=== PATIENT | male | born 1930 | race Caucasian/White ===

== ENCOUNTER 2016-07-04 12:10 | Emergency (ER) | payer MEDICARE, OTHER ==
[2008-08-16 11:01] VITALS: BP 172/91
[~2016-07-04] VITALS: Ht 180.3 cm; Wt 95.5 kg
[~2016-07-04 12:10] MED LIST: AMARYL 2MG T2 MG/TAB PO; ASPIR-LOW81 MG PO; ASPIRIN E.C. 8181 MG PO; BETAPACE 80MG80 MG PO; BETAPACE AF120 MG PO; CORGARD 40M40 MG/TAB PO; DIOVAN; FLOMAX 0.40.4 MG/CAP PO; LASIX 40MG TABL40 MG PO; LORTAB 5/500 501 TAB PO; MIRALAX PA17 GM/Dose PO; NAPROXEN220 MG PO; NORVASC 10MG10 MG PO; PRILOSEC 20MG20 MG PO; PRILOSEC20 M1 PO; TOPAMAX50 MG PO; TOPROL PO; TOPROL XL50 MG PO; TYLENOL 325MG325 MG PO; ZOCOR 20MG20 MG PO; ZOFRAN 4MG T4 MG/TAB PO
[2016-07-04 12:14] VITALS: TEMP 97.5
[2016-07-04] MEDS ORDERED: ZEBETA10 MG PO (12:21)
[2016-07-04 13:14] LABS: BASO % 0.4 % (0.0-2.0); EOS # 0.2 (0.0-0.7); EOS % 2.9 % (0-4.0); GRAN # 4.3 (1.4-6.5); GRAN % 63.2 % (42.2-75.2); HEMATOCRIT 44.8 % (42.0-52.0); HEMOGLOBIN 15.2 g/dl (13.5-18.0); LYMPH # 1.5 (1.2-3.4); MEAN CELL VOLUME 88 fl (80.0-100.0); MEAN CORPUSCULAR HEMOGLOBIN 30 pg (27.0-31.0); MEAN CORPUSCULAR HGB CONC 34 g/dl (33.0-37.0); MEAN PLATELET VOLUME 12.1 fl (7.4-10.4); MONO # 0.8 (0.1-0.6); MONO % 11.1 % (1.7-9.3); PLATELET COUNT 166 K/mm3 (130-400); RED BLOOD COUNT 5.09 M/mm3 (4.20-5.60); REDCELL DISTRIBUTION WIDTH-CV 12.9 % (11.5-14.5); WHITE BLOOD COUNT 6.8 K/mm3 (4.8-10.8)
[2016-07-04 13:23] LABS: PH 6 (5-8); SQUAMOUS EPITHELIAL None Seen /hpf; URINE APPEARANCE Clear; URINE BACTERIA None Seen /hpf; URINE BILIRUBIN Negative (NEGATIVE); URINE BLOOD Negative (NEGATIVE); URINE COLOR Yellow; URINE GLUCOSE Negative (NEGATIVE); URINE KETONE Negative (NEGATIVE); URINE RBC 0-2 /hpf; URINE UROBILINOGEN Negative (NEGATIVE); URINE WBC 0-2 /hpf
[2016-07-04 13:37] LABS: ADJUSTED CALCIUM 9.3 mg/dL (8.4-10.2); ALANINE AMINOTRANSFERASE 52 U/L (21-72); ALBUMIN 4.2 gm/dL (3.5-5.0); ALKALINE PHOSPHATASE 61 U/L (50-136); ANION GAP 12 mmol/L (7-16); BILIRUBIN,TOTAL 1.2 mg/dL (0.0-1.0); BLOOD UREA NITROGEN 18 mg/dL (9-20); CALCIUM 9.5 mg/dL (8.4-10.2); CARBON DIOXIDE 25 mmol/L (22-30); CHLORIDE 101 mmol/L (98-107); CREATININE, serum 0.88 mg/dL (0.66-1.25); GLUCOSE 129 mg/dL (74-106); SODIUM 138 mmol/L (137-145); TOTAL PROTEIN 7.4 gm/dL (6.4-8.2)
[2016-07-04 13:46] LABS: B-TYPE NATRIURETIC PEPTIDE 2630 pg/mL (0-450)
[2016-07-04 13:48] LABS: C-REACTIVE PROTEIN < 0.5 mg/dL (0.0-0.9); TROPONIN-I < 0.012 ng/mL (0.000-0.034)
[2016-07-04] MEDS ORDERED: LASIX 40MG TABL40 MG PO (14:34)
[2016-07-04] MEDS ORDERED: NITROSTAT0.4 MG/TAB SL (14:35)
[2016-07-04 16:04] VITALS: BP 132/81; PULSE 67
== END 2016-07-04 16:05 | disposition home or self-care (01) ==
LOC: COL.ER 12:10
PROVIDERS: Family Medicine
DX: R07.9 Chest pain, unspecified (principal); R06.01 Orthopnea

== ENCOUNTER 2017-01-05 22:10 | Emergency (ER) | payer MEDICARE, OTHER ==
[2008-08-16 11:01] VITALS: BP 172/91
[~2017-01-05] VITALS: Ht 180.3 cm; Wt 86.8 kg
[~2017-01-05 22:10] MED LIST changes: +NITROSTAT0.4 MG/TAB SL; +ZEBETA10 MG PO
[2017-01-05 22:16] VITALS: TEMP 98
[2017-01-05 22:53] LABS: BASO % 0.4 % (0.0-2.0); EOS # 0.1 (0.0-0.7); EOS % 1.4 % (0-4.0); GRAN # 5.2 (1.4-6.5); GRAN % 64.4 % (42.2-75.2); HEMATOCRIT 46.7 % (42.0-52.0); HEMOGLOBIN 15.5 g/dl (13.5-18.0); LYMPH % 24.3 % (20.0-51.0); MEAN CELL VOLUME 90 fl (80.0-100.0); MEAN CORPUSCULAR HEMOGLOBIN 30 pg (27.0-31.0); MEAN CORPUSCULAR HGB CONC 33 g/dl (33.0-37.0); MEAN PLATELET VOLUME 11.6 fl (7.4-10.4); MONO # 0.8 (0.1-0.6); MONO % 9.3 % (1.7-9.3); PLATELET COUNT 183 K/mm3 (130-400); WHITE BLOOD COUNT 8.1 K/mm3 (4.8-10.8)
[2017-01-05 23:01] LABS: PH 7 (5-8); SQUAMOUS EPITHELIAL None Seen /hpf; URINE APPEARANCE Clear; URINE BACTERIA None Seen /hpf; URINE BILIRUBIN Negative (NEGATIVE); URINE BLOOD Negative (NEGATIVE); URINE COLOR Straw; URINE GLUCOSE Negative (NEGATIVE); URINE KETONE Negative (NEGATIVE); URINE RBC 0-2 /hpf; URINE UROBILINOGEN Negative (NEGATIVE); URINE WBC 0-2 /hpf
[2017-01-05 23:03] LABS: ADJUSTED CALCIUM 9.4 mg/dL (8.4-10.2); ALBUMIN 4.1 gm/dL (3.5-5.0); BILIRUBIN,TOTAL 1.1 mg/dL (0.0-1.0); CALCIUM 9.5 mg/dL (8.4-10.2); CREATININE, serum 0.98 mg/dL (0.66-1.25); POTASSIUM 4.2 mmol/L (3.4-5.0); TOTAL PROTEIN 7.1 gm/dL (6.4-8.2)
[2017-01-06 00:28] VITALS: BP 133/83; PULSE 60
== END 2017-01-06 00:45 | disposition home or self-care (01) ==
LOC: COL.ER 22:10
PROVIDERS: Nurse Practitioner
DX: K59.00 Constipation, unspecified (principal); I48.91 Unspecified atrial fibrillation; E11.9 Type 2 diabetes mellitus without complications; Z79.84 Long term (current) use of oral hypoglycemic drugs; I10 Essential (primary) hypertension; Z95.0 Presence of cardiac pacemaker; Z87.891 Personal history of nicotine dependence
CPT/HCPCS: Q9967

== ENCOUNTER 2017-01-10 00:05 | Emergency (ER) | payer MEDICARE, OTHER ==
[2008-08-16 11:01] VITALS: BP 172/91
[~2017-01-10] VITALS: Ht 180.3 cm; Wt 86.4 kg
[2017-01-10 00:13] VITALS: BP 160/77; TEMP 98.4
[2017-01-10 01:39] VITALS: PULSE 86
== END 2017-01-10 01:13 | disposition home or self-care (01) ==
LOC: COL.ER 00:05
DX: S39.012A Strain of muscle, fascia and tendon of lower back, initial encounter (principal); E11.9 Type 2 diabetes mellitus without complications; I10 Essential (primary) hypertension; N40.0 Benign prostatic hyperplasia without lower urinary tract symptoms; Z71.1 Person with feared health complaint in whom no diagnosis is made; Z87.19 Personal history of other diseases of the digestive system

== ENCOUNTER 2017-01-12 12:51 | Emergency (ER) | payer MEDICARE, OTHER ==
[2008-08-16 11:01] VITALS: BP 172/91
[~2017-01-12] VITALS: Ht 180.3 cm; Wt 86.4 kg
[2017-01-12 12:56] VITALS: BP 168/77; PULSE 68; TEMP 97.8
== END 2017-01-12 14:08 | disposition left against medical advice (07) ==
LOC: COL.ER 12:51
DX: K59.00 Constipation, unspecified (principal)

== ENCOUNTER 2017-04-25 22:19 | Emergency (ER) | payer MEDICARE, OTHER ==
[2008-08-16 11:01] VITALS: BP 172/91
[~2017-04-25] VITALS: Ht 180.3 cm; Wt 81.8 kg
[2017-04-25 22:22] VITALS: BP 162/87; TEMP 97
[2017-04-25] MEDS ORDERED: PACERONE200 MG PO (22:37)
[2017-04-25] MEDS ORDERED: ELIQUIS 5MG PO (22:38)
[2017-04-25] MEDS ORDERED: ZEBETA10 MG PO (22:39)
[2017-04-25] MEDS ORDERED: COLACE 100100 MG/CAP PO (22:40)
[2017-04-25] MEDS ORDERED: LEADER CLEARLAX PO (22:41)
[2017-04-25 22:59] LABS: COLLECTION METHOD CLEAN CATCH
[2017-04-25 23:04] LABS: MUCOUS Present /lpf; PH 7 (5-8); SQUAMOUS EPITHELIAL None Seen /hpf; URINE APPEARANCE Clear; URINE BACTERIA None Seen /hpf; URINE BILIRUBIN Negative (NEGATIVE); URINE BLOOD 2+ (NEGATIVE); URINE COLOR Straw; URINE GLUCOSE Negative (NEGATIVE); URINE KETONE Negative (NEGATIVE); URINE LEUKOCYTE ESTERASE Negative (NEGATIVE); URINE PROTEIN(semi-quant) Negative (NEGATIVE); URINE UROBILINOGEN Negative (NEGATIVE); URINE WBC 0-2 /hpf
[2017-04-25 23:16] LABS: BASO % 0.3 % (0.0-2.0); EOS # 0.2 (0.0-0.7); EOS % 2.2 % (0-4.0); GRAN % 67.1 % (42.2-75.2); HEMATOCRIT 45.5 % (42.0-52.0); HEMOGLOBIN 15.2 g/dl (13.5-18.0); LYMPH # 1.5 (1.2-3.4); LYMPH % 20.8 % (20.0-51.0); MEAN CELL VOLUME 92 fl (80.0-100.0); MEAN CORPUSCULAR HEMOGLOBIN 31 pg (27.0-31.0); MEAN CORPUSCULAR HGB CONC 33 g/dl (33.0-37.0); MEAN PLATELET VOLUME 11.3 fl (7.4-10.4); MONO # 0.7 (0.1-0.6); MONO % 9.1 % (1.7-9.3); PLATELET COUNT 178 K/mm3 (130-400); RED BLOOD COUNT 4.96 M/mm3 (4.20-5.60); WHITE BLOOD COUNT 7.4 K/mm3 (4.8-10.8)
[2017-04-25 23:30] LABS: ADJUSTED CALCIUM 9.6 mg/dL (8.4-10.2); ALANINE AMINOTRANSFERASE 40 U/L (21-72); ALKALINE PHOSPHATASE 65 U/L (50-136); ANION GAP 9 mmol/L (7-16); BILIRUBIN,TOTAL 0.8 mg/dL (0.0-1.0); BLOOD UREA NITROGEN 17 mg/dL (9-20); C-REACTIVE PROTEIN < 0.5 mg/dL (0.0-0.9); CALCIUM 9.6 mg/dL (8.4-10.2); CARBON DIOXIDE 30 mmol/L (22-30); CHLORIDE 100 mmol/L (98-107); CREATININE, serum 1.02 mg/dL (0.66-1.25); GLUCOSE 96 mg/dL (74-106); POTASSIUM 5.1 mmol/L (3.4-5.0); SODIUM 138 mmol/L (137-145); TOTAL PROTEIN 7.1 gm/dL (6.4-8.2)
[2017-04-26] MEDS ORDERED: KRISTALOSE10 GM/PACK PO (00:16)
[2017-04-26 00:45] VITALS: PULSE 68
== END 2017-04-26 00:45 | disposition home or self-care (01) ==
LOC: COL.ER 22:19
PROVIDERS: Emergency Medicine
DX: K59.00 Constipation, unspecified (principal); E11.9 Type 2 diabetes mellitus without complications; I10 Essential (primary) hypertension; Z95.0 Presence of cardiac pacemaker

== ENCOUNTER 2017-05-12 11:04 | Emergency (ER) | payer MEDICARE, OTHER ==
[2008-08-16 11:01] VITALS: BP 172/91
[~2017-05-12] VITALS: Ht 177.8 cm; Wt 81.8 kg
[~2017-05-12 11:04] MED LIST changes: +COLACE 100100 MG/CAP PO; +ELIQUIS 5MG PO; +KRISTALOSE10 GM/PACK PO; +LEADER CLEARLAX PO; +PACERONE200 MG PO
[2017-05-12 11:10] VITALS: BP 144/65; TEMP 96.8
[2017-05-12 12:41] VITALS: PULSE 78
== END 2017-05-12 12:42 | disposition home or self-care (01) ==
LOC: COL.ER 11:04
DX: K59.00 Constipation, unspecified (principal); I10 Essential (primary) hypertension; E11.9 Type 2 diabetes mellitus without complications; Z90.49 Acquired absence of other specified parts of digestive tract; Z98.890 Other specified postprocedural states

== ENCOUNTER 2017-05-17 23:54 | Emergency (ER) | payer MEDICARE, OTHER ==
[2008-08-16 11:01] VITALS: BP 172/91
[~2017-05-17] VITALS: Ht 154.9 cm; Wt 81.8 kg
[2017-05-18 00:04] VITALS: TEMP 97.9
[2017-05-18 02:00] VITALS: BP 128/72; PULSE 65
== END 2017-05-18 01:59 | disposition home or self-care (01) ==
LOC: COL.ER 23:54
DX: K59.00 Constipation, unspecified (principal); I10 Essential (primary) hypertension; E11.9 Type 2 diabetes mellitus without complications; Z95.0 Presence of cardiac pacemaker

== ENCOUNTER 2017-07-29 17:07 | Emergency (ER) | payer MEDICARE, OTHER ==
[2008-08-16 11:01] VITALS: BP 172/91
[~2017-07-29] VITALS: Ht 180.3 cm; Wt 81.8 kg
[2017-07-29 17:09] VITALS: TEMP 98.6
[2017-07-29 17:59] LABS: BASO % 0.2 % (0.0-2.0); EOS # 0.1 (0.0-0.7); EOS % 0.4 % (0-4.0); GRAN # 9.6 (1.4-6.5); HEMATOCRIT 40.8 % (42.0-52.0); HEMOGLOBIN 13.3 g/dl (13.5-18.0); LYMPH # 0.9 (1.2-3.4); LYMPH % 7.4 % (20.0-51.0); MEAN CELL VOLUME 93 fl (80.0-100.0); MEAN CORPUSCULAR HEMOGLOBIN 30 pg (27.0-31.0); MEAN CORPUSCULAR HGB CONC 33 g/dl (33.0-37.0); MEAN PLATELET VOLUME 11.6 fl (7.4-10.4); MONO % 8.3 % (1.7-9.3); PLATELET COUNT 158 K/mm3 (130-400); RED BLOOD COUNT 4.41 M/mm3 (4.20-5.60); REDCELL DISTRIBUTION WIDTH-CV 13.7 % (11.5-14.5)
[2017-07-29 18:03] LABS: INR 1.8 (0.8-3.0); PROTHROMBIN TIME 20.6 SECONDS (9.7-12.8)
[2017-07-29 18:12] LABS: ALBUMIN 3.7 gm/dL (3.5-5.0); BILIRUBIN,TOTAL 0.5 mg/dL (0.0-1.0); CALCIUM 8.8 mg/dL (8.4-10.2); CREATININE, serum 0.85 mg/dL (0.66-1.25); POTASSIUM 4.2 mmol/L (3.4-5.0); TOTAL PROTEIN 6.6 gm/dL (6.4-8.2)
[2017-07-29 20:02] VITALS: BP 156/70; PULSE 61
[2017-07-30] MEDS ORDERED: NORCO 325 MG-51 TAB PO (11:58)
== END 2017-07-29 20:05 | disposition home or self-care (01) ==
LOC: COL.ER 17:07
PROVIDERS: Emergency Medicine
DX: S42.012A Anterior displaced fracture of sternal end of left clavicle, initial encounter for closed fracture (principal); W19.XXXA Unspecified fall, initial encounter; Y92.009 Unspecified place in unspecified non-institutional (private) residence as the place of occurrence of the external cause; Z91.81 History of falling; I49.5 Sick sinus syndrome; I10 Essential (primary) hypertension; M54.2 Cervicalgia; S30.810A Abrasion of lower back and pelvis, initial encounter; Z79.01 Long term (current) use of anticoagulants; R40.2412 Glasgow coma scale score 13-15, at arrival to emergency department; I51.9 Heart disease, unspecified; M54.9 Dorsalgia, unspecified; Z95.0 Presence of cardiac pacemaker
CPT/HCPCS: J7050; Q9967

== ENCOUNTER → 2017-07-30 | Emergency (ER) | payer MEDICARE, OTHER ==
[2008-08-16 11:01] VITALS: BP 172/91
[~2017-07-30] VITALS: Ht 180.3 cm; Wt 81.8 kg
[~2017-07-30] MED LIST changes: +NORCO 325 MG-51 TAB PO
[2017-07-30 10:08] VITALS: BP 102/55; PULSE 61; TEMP 98.8
== END ==
LOC: COL.ER 10:00
DX: M25.512 Pain in left shoulder (principal); M54.5 Low back pain; I10 Essential (primary) hypertension; I48.91 Unspecified atrial fibrillation; Z91.81 History of falling; Z79.01 Long term (current) use of anticoagulants; X58.XXXA Exposure to other specified factors, initial encounter

== ENCOUNTER 2017-09-27 20:55 | Emergency (ER) | payer MEDICARE, OTHER ==
[2008-08-16 11:01] VITALS: BP 172/91
[~2017-09-27] VITALS: Ht 182.9 cm; Wt 86.4 kg
[2017-09-27 20:57] VITALS: TEMP 98.5
[2017-09-27 21:15] VITALS: BP 138/58
[2017-09-27 21:35] LABS: COLLECTION METHOD CLEAN CATCH
[2017-09-27 21:45] LABS: MUCOUS Present /lpf; PH 6 (5-8); SQUAMOUS EPITHELIAL None Seen /hpf; URINE APPEARANCE Cloudy; URINE BACTERIA None Seen /hpf; URINE BILIRUBIN Negative (NEGATIVE); URINE BLOOD 3+ (NEGATIVE); URINE COLOR Yellow; URINE GLUCOSE Negative (NEGATIVE); URINE KETONE Negative (NEGATIVE); URINE LEUKOCYTE ESTERASE 1+ (NEGATIVE); URINE NITRATE Negative (NEGATIVE); URINE PROTEIN(semi-quant) 1+ (NEGATIVE); URINE RBC >50 /hpf; URINE UROBILINOGEN >=4.0 mg/dL (NEGATIVE)
[2017-09-27] MEDS ORDERED: OMNICEF 300MG300 MG PO (22:30)
[2017-09-27] MEDS ORDERED: FLOMAX 0.40.4 MG/CAP PO (22:30)
[2017-09-27] MEDS ORDERED: NORCO 325 MG-51 TAB PO (22:30)
[2017-09-27 22:44] VITALS: PULSE 60
== END 2017-09-27 22:44 | disposition home or self-care (01) ==
LOC: COL.ER 20:55
PROVIDERS: Emergency Medicine
DX: M54.5 Low back pain (principal); I10 Essential (primary) hypertension; I48.91 Unspecified atrial fibrillation; N39.0 Urinary tract infection, site not specified; W19.XXXA Unspecified fall, initial encounter

== ENCOUNTER 2017-10-14 23:35 | Observation (INO) | payer MEDICARE, OTHER ==
[~2017-10-14] VITALS: Ht 182.9 cm; Wt 85.2 kg
[~2017-10-14 23:35] MED LIST changes: +OMNICEF 300MG300 MG PO
[2017-10-15 00:43] LABS: BASO % 0.3 % (0.0-2.0); EOS # 0.2 (0.0-0.7); EOS % 2.3 % (0-4.0); GRAN # 4.4 (1.4-6.5); GRAN % 67.6 % (42.2-75.2); HEMATOCRIT 38.3 % (42.0-52.0); HEMOGLOBIN 12.7 g/dl (13.5-18.0); LYMPH # 1.2 (1.2-3.4); LYMPH % 18.3 % (20.0-51.0); MEAN CELL VOLUME 90 fl (80.0-100.0); MEAN CORPUSCULAR HEMOGLOBIN 30 pg (27.0-31.0); MEAN CORPUSCULAR HGB CONC 33 g/dl (33.0-37.0); MEAN PLATELET VOLUME 11.5 fl (7.4-10.4); MONO # 0.7 (0.1-0.6); PLATELET COUNT 228 K/mm3 (130-400); RED BLOOD COUNT 4.25 M/mm3 (4.20-5.60); REDCELL DISTRIBUTION WIDTH-CV 13.5 % (11.5-14.5)
[2017-10-15 00:56] LABS: ALBUMIN 3.5 gm/dL (3.5-5.0); BILIRUBIN,TOTAL 0.4 mg/dL (0.0-1.0); C-REACTIVE PROTEIN 1.7 mg/dL (0.0-0.9); CALCIUM 8.8 mg/dL (8.4-10.2); CREATININE, serum 0.88 mg/dL (0.66-1.25); POTASSIUM 4.1 mmol/L (3.4-5.0); TOTAL PROTEIN 6.7 gm/dL (6.4-8.2)
[2017-10-15 01:01] LABS: COLLECTION METHOD CLEAN CATCH
[2017-10-15 01:08] LABS: MUCOUS Present /lpf; PH 6 (5-8); SQUAMOUS EPITHELIAL None Seen /hpf; URINE APPEARANCE Hazy; URINE BACTERIA None Seen /hpf; URINE BILIRUBIN Negative (NEGATIVE); URINE BLOOD 3+ (NEGATIVE); URINE COLOR Yellow; URINE GLUCOSE Negative (NEGATIVE); URINE KETONE Negative (NEGATIVE); URINE LEUKOCYTE ESTERASE Negative (NEGATIVE); URINE NITRATE Negative (NEGATIVE); URINE PROTEIN(semi-quant) Negative (NEGATIVE); URINE RBC >50 /hpf
[2017-10-15 01:55] VITALS: BP 138/59; PULSE 60
[2017-10-15] MEDS ORDERED: TYLENOL 500MG500 MG PO (02:26)
[2017-10-15] MEDS ORDERED: MIRALAX PA17 GM/Dose PO (02:27)
[2017-10-15 04:17] VITALS: BP 117/44; PULSE 61; TEMP 97.7
[2017-10-15 06:59] LABS: BASO % 0.4 % (0.0-2.0); EOS # 0.2 (0.0-0.7); EOS % 2.7 % (0-4.0); GRAN # 3.5 (1.4-6.5); GRAN % 61.8 % (42.2-75.2); LYMPH # 1.3 (1.2-3.4); LYMPH % 22.8 % (20.0-51.0); MEAN CELL VOLUME 91 fl (80.0-100.0); MEAN CORPUSCULAR HGB CONC 32 g/dl (33.0-37.0); MEAN PLATELET VOLUME 11.4 fl (7.4-10.4); MONO # 0.7 (0.1-0.6); MONO % 11.8 % (1.7-9.3); PLATELET COUNT 207 K/mm3 (130-400); RED BLOOD COUNT 3.94 M/mm3 (4.20-5.60); REDCELL DISTRIBUTION WIDTH-CV 13.4 % (11.5-14.5)
[2017-10-15 07:06] LABS: CALCIUM 8.4 mg/dL (8.4-10.2); CREATININE, serum 0.89 mg/dL (0.66-1.25); POTASSIUM 3.9 mmol/L (3.4-5.0)
[2017-10-15 07:15] LABS: HEMATOCRIT 35.9 % (42.0-52.0); HEMOGLOBIN 11.6 g/dl (13.5-18.0); MEAN CORPUSCULAR HEMOGLOBIN 29 pg (27.0-31.0)
[2017-10-15 07:54] VITALS: BP 161/63; PULSE 61; TEMP 97.4
[2017-10-15 11:02] VITALS: BP 129/57; PULSE 60; TEMP 97.7
[2017-10-15] MEDS ORDERED: NORCO 325 MG-51 TAB PO ×2 (14:35→14:43)
== END 2017-10-15 15:42 | disposition home or self-care (01) ==
LOC: COL.ER 23:35 → MEDICAL 10-15 00:19
PROVIDERS: Emergency Medicine; Nurse Practitioner Family
DX: S32.040A Wedge compression fracture of fourth lumbar vertebra, initial encounter for closed fracture (principal); S32.020A Wedge compression fracture of second lumbar vertebra, initial encounter for closed fracture; I48.91 Unspecified atrial fibrillation; I10 Essential (primary) hypertension; N40.0 Benign prostatic hyperplasia without lower urinary tract symptoms; K59.00 Constipation, unspecified; E11.9 Type 2 diabetes mellitus without complications; N39.0 Urinary tract infection, site not specified; Z79.01 Long term (current) use of anticoagulants; Z95.0 Presence of cardiac pacemaker; Z90.49 Acquired absence of other specified parts of digestive tract; Z88.0 Allergy status to penicillin; Z88.2 Allergy status to sulfonamides; Z88.5 Allergy status to narcotic agent; Z88.8 Allergy status to other drugs, medicaments and biological substances; Z88.6 Allergy status to analgesic agent; Z87.891 Personal history of nicotine dependence; Z82.3 Family history of stroke
CPT/HCPCS: G0378; G8987-GO; G8988-GO; J1885; J2060; J2405; J7030; Q9967

== ENCOUNTER → 2017-11-28 | Outpatient (CLI) | payer MEDICARE, OTHER ==
[~2017-11-28] MED LIST changes: +TYLENOL 500MG500 MG PO
[2017-11-28 10:06] LABS: COLLECTION METHOD CLEAN CATCH
[2017-11-28 10:18] LABS: MUCOUS Present /lpf; PH 7 (5-8); SQUAMOUS EPITHELIAL 0-2 /hpf; URINE APPEARANCE Clear; URINE BACTERIA None Seen /hpf; URINE BILIRUBIN Negative (NEGATIVE); URINE BLOOD 2+ (NEGATIVE); URINE COLOR Yellow; URINE GLUCOSE Negative (NEGATIVE); URINE KETONE Negative (NEGATIVE); URINE LEUKOCYTE ESTERASE Negative (NEGATIVE); URINE NITRATE Negative (NEGATIVE); URINE PROTEIN(semi-quant) Negative (NEGATIVE); URINE RBC >50 /hpf; URINE UROBILINOGEN Negative (NEGATIVE)
== END ==
LOC: ZLAB.STJ 10:05
PROVIDERS: Internal Medicine
DX: R35.0 Frequency of micturition (principal)

== ENCOUNTER 2018-01-23 22:53 | Emergency (ER) | payer MEDICARE, OTHER ==
[2008-08-16 11:01] VITALS: BP 172/91
[2018-01-23 22:57] VITALS: TEMP 98
[2018-01-23 23:17] LABS: BASO % 0.4 % (0.0-2.0); EOS # 0.2 (0.0-0.7); EOS % 2.4 % (0-4.0); GRAN # 4.2 (1.4-6.5); HEMOGLOBIN 11.9 g/dl (13.5-18.0); LYMPH # 1.7 (1.2-3.4); LYMPH % 24.9 % (20.0-51.0); MEAN CELL VOLUME 92 fl (80.0-100.0); MEAN CORPUSCULAR HEMOGLOBIN 30 pg (27.0-31.0); MEAN CORPUSCULAR HGB CONC 32 g/dl (33.0-37.0); MEAN PLATELET VOLUME 11.4 fl (7.4-10.4); MONO # 0.7 (0.1-0.6); MONO % 9.7 % (1.7-9.3); PLATELET COUNT 208 K/mm3 (130-400); REDCELL DISTRIBUTION WIDTH-CV 13.7 % (11.5-14.5)
[2018-01-23 23:18] LABS: HEMATOCRIT 36.7 % (42.0-52.0)
[2018-01-23 23:21] LABS: INR 1.7 (0.8-3.0)
[2018-01-23 23:23] LABS: ALANINE AMINOTRANSFERASE 33 U/L (21-72); ALBUMIN 3.5 gm/dL (3.5-5.0); ANION GAP 8 mmol/L (7-16); AST,SGOT 28 U/L (15-37); BILIRUBIN,TOTAL 0.3 mg/dL (0.0-1.0); BLOOD UREA NITROGEN 21 mg/dL (9-20); CALCIUM 8.7 mg/dL (8.4-10.2); CARBON DIOXIDE 29 mmol/L (22-30); CHLORIDE 99 mmol/L (98-107); CREATININE, serum 0.93 mg/dL (0.66-1.25); GLUCOSE 106 mg/dL (74-106); POTASSIUM 4.3 mmol/L (3.4-5.0); SODIUM 136 mmol/L (137-145); TOTAL PROTEIN 6.1 gm/dL (6.4-8.2)
[2018-01-23] MEDS ORDERED: TENORMIN 5050 MG/TAB PO (23:27)
[2018-01-23] MEDS ORDERED: ALEVE 220MG220 MG PO (23:27)
[2018-01-23 23:28] LABS: ALKALINE PHOSPHATASE 67 U/L (50-136)
[2018-01-23 23:35] LABS: TROPONIN-I < 0.012 ng/mL (0.000-0.034)
[2018-01-24 01:25] VITALS: BP 196/93; PULSE 90
== END 2018-01-24 01:42 | disposition left against medical advice (07) ==
LOC: COL.ER 22:53 → MEDICAL 01-24 00:34 → COL.ER 01-24 00:34
PROVIDERS: Emergency Medicine
DX: I24.9 Acute ischemic heart disease, unspecified (principal); I10 Essential (primary) hypertension; E11.9 Type 2 diabetes mellitus without complications; I48.91 Unspecified atrial fibrillation; Z95.0 Presence of cardiac pacemaker; Z90.49 Acquired absence of other specified parts of digestive tract; Z98.890 Other specified postprocedural states

== ENCOUNTER → 2018-02-24 | Outpatient (CLI) | payer MEDICARE, OTHER ==
[~2018-02-24] MED LIST changes: +ALEVE 220MG220 MG PO; +TENORMIN 5050 MG/TAB PO
[2018-02-24 09:43] LABS: CALCIUM 8.8 mg/dL (8.4-10.2); CREATININE, serum 1.02 mg/dL (0.66-1.25); POTASSIUM 4.6 mmol/L (3.4-5.0)
== END ==
LOC: ZLAB.STJ 09:28
PROVIDERS: Internal Medicine Cardiovascular Disease
DX: I50.9 Heart failure, unspecified (principal)

== ENCOUNTER → 2018-03-05 | Outpatient (CLI) | payer MEDICARE, OTHER ==
[2018-03-05 16:35] LABS: CREATININE, serum 1.08 mg/dL (0.66-1.25); POTASSIUM 4.8 mmol/L (3.4-5.0)
== END ==
LOC: ZLAB.STJ 15:41
PROVIDERS: Internal Medicine
DX: I50.9 Heart failure, unspecified (principal); E11.8 Type 2 diabetes mellitus with unspecified complications; I48.0 Paroxysmal atrial fibrillation